=== PATIENT | male | born 1995 | race Caucasian/White ===

== ENCOUNTER 2018-05-23 12:51 | Emergency (ER) | payer SELFPAY ==
[~2018-05-23] VITALS: Ht 167.6 cm; Wt 64.0 kg
[2018-05-23 13:10] VITALS: BP 126/88
--- NOTE | 2018-05-23 13:28 | NUR ---
PT PROVIDES URINE SPECIMEN AT THIS TIME.
--- NOTE | 2018-05-23 14:37 | NUR ---
PT AMBULATED TO BED 1, REPORT TO GALO RENE
--- NOTE | 2018-05-23 14:40 | NUR ---
22 YO M BIB SELF TO GET TESTED FOR STD. PT REPORTS THAT HIS GF TESTED POSITIVE FOR CHLAMYDIA. PT REQUESTING FULL PANEL STD TESTING. DENIES S/S. DENIES MEDICAL HX
[2018-05-23] MEDS ORDERED: cefTRIAXone 250 MG in LIDOCAINE MPF 1% - 5 mL VIAL 0.9 ML IM ONE (14:55)
[2018-05-23] MEDS ORDERED: AZITHROMYCIN 250 MG TAB PO ONE (14:55)
[2018-05-23 15:14] VITALS: BP 126/88
--- NOTE | 2018-05-23 15:15 | NUR ---
Patient discharged with v/s stable. Written and verbal after care instructions given and explained. Patient verbalized understanding. Ambulatory with to car. All questions addressed prior to discharge. Advised to follow up with PMD.
[2018-05-23 16:06] LABS: BILIRUBIN,URINE 1+ (NEGATIVE); BLOOD, URINE TRACE-I (NEGATIVE); COLOR,URINE YELLOW (YELLOW); LEUKOCYTE ESTERASE ,URINE TRACE (NEGATIVE); NITRITE, URINE NEGATIVE (NEGATIVE); UGLUCOSE NEGATIVE (NEGATIVE)
[2018-05-23 16:07] LABS: APPEARANCE,URINE HAZY (CLEAR)
[2018-05-23 16:26] LABS: RBC,URINE 0-5 (RARE) /HPF (0-5)
--- NOTE | 2018-06-13 17:03 | NUR ---
CALLED UNABLE TO LEVE VOICEMAIL. REFERRED TO INFECTIOUS CONTROL NURSE
[2018-06-17 11:30] LABS: CHLAMYDIA TRACHOMATIS AMP DNA Positive (NEGATIVE)
== END 2018-05-23 15:15 | disposition home or self-care (01) ==
LOC: MED 12:51
DX: Z11.3 Encounter for screening for infections with a predominantly sexual mode of transmission (principal)
CPT/HCPCS: 36415; 81001; 87086; 96372; 99283; J0696; J2001; 87491